=== PATIENT | male | born 1960 | race Caucasian/White ===

== ENCOUNTER 2017-05-09 15:29 | Emergency (ER) | payer OTHER ==
[2017-05-09] MEDS ORDERED: SODIUM CHLORIDE 0.9% 1,000 ML IV ONE (15:52)
[2017-05-09] MEDS ORDERED: ONDANSETRON 4 MG/2 ML VIAL IVP PRN (15:53)
[2017-05-09] MEDS ORDERED: ONDANSETRON 4 MG/2 ML VIAL IVP STA (15:53)
[2017-05-09] MEDS ORDERED: MORPHINE SULFATE/PF 10MG/10ML VL IVP PRN (15:53)
[2017-05-09] MEDS ORDERED: MORPHINE SULFATE 4 MG/ML SYRINGE IVP STA (15:53)
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
[2017-05-09] MEDS ORDERED: DEXAMETHASONE SOD PHOSPHATE 10 MG/ML 1 ML VIAL IV STA (16:39)
--- NOTE | 2017-05-09 16:44 | ED ---
Medical Decision Making - Medical Decision Making 57-year-old male to the ER for evaluation. Presents today for lower extremity weakness, metastatic CA. Patient is not felt to be good candidate here at this hospital, recommends transfer for neurosurgery. Spoke with [facility] regarding transfer, they are accepting Disposition Clinical Impression: Metastatic cancer, Weakness, Intractable back pain Disposition: OTHER INSTITUTION NOT DEFINED Condition: Fair Referrals: Jaime Mcfadden MD [Primary Care Provider] - 1-2 days - Out of Hospital Transfer - Req. Specs Out of Hospital Transfer - Requested Specifics: Other Emergency Center ([facility])
[2017-05-09 17:25] VITALS: BP 99/65; PULSE 95; RESP 18; TEMP 98.6
[2017-05-10] MEDS ORDERED: ENOXAPARIN 40 MG/0.4 ML SYRINGE SQ SCH (09:00)
== END 2017-05-09 17:57 | disposition short-term general hospital (02) ==
LOC: EC 15:29 → UNDOADMIN 15:52 → 5ONC 15:52 → EC 17:57
DX: C79.89 Secondary malignant neoplasm of other specified sites (principal); C80.1 Malignant (primary) neoplasm, unspecified; R29.898 Other symptoms and signs involving the musculoskeletal system; M25.551 Pain in right hip; F17.200 Nicotine dependence, unspecified, uncomplicated; Z53.8 Procedure and treatment not carried out for other reasons
CPT/HCPCS: 99285; 96374; 96375; 96361 ×2; J2405; J2270